=== PATIENT | female | born 2000 | race Hispanic/Latino ===

== ENCOUNTER 2022-07-30 10:55 | Emergency (ER) | payer OTHER ==
[~2022-07-30] VITALS: Ht 152.4 cm; Wt 59.0 kg
[2022-07-30] MEDS ORDERED: TAM75CAP PO (12:03)
[2022-07-30] MEDS ORDERED: ZYRTEC10 MG PO (12:04)
[2022-07-30] MEDS ORDERED: ZPAK PO (13:18)
[2022-07-30 13:31] VITALS: BP 118/59
== END 2022-07-30 13:33 | disposition home or self-care (01) | DRG 195 ==
LOC: ED 10:55
DX: J10.1 Influenza due to other identified influenza virus with other respiratory manifestations (principal); Z20.822 Contact with and (suspected) exposure to COVID-19

== ENCOUNTER 2023-03-30 00:02 | Emergency (ER) | payer SELFPAY ==
[~2023-03-30] VITALS: Ht 152.4 cm; Wt 60.0 kg
[~2023-03-30 00:02] MED LIST: TAM75CAP PO; ZPAK PO; ZYRTEC10 MG PO
[2023-03-30 00:09] VITALS: BP 108/68
[2023-03-30 00:15] VITALS: BP 115/60
[2023-03-30] MEDS ORDERED: ACETAMINOPHEN 500 MG TAB PO ONE (00:20)
[2023-03-30] MEDS ORDERED: PROCHLORPERAZINE EDISYLATE 10 MG/2 ML SDV IV ONE (00:20)
[2023-03-30] MEDS ORDERED: SODIUM CHLORIDE 0.9% 1,000 ML IV ONE (00:20)
[2023-03-30 00:30] VITALS: BP 107/60
[2023-03-30 00:35] LABS: BASO% 0.1 % (0-3); HEMATOCRIT 34.6 % (37.0-47.0); HEMOGLOBIN 11.7 g/dl (12.0-16.0); IMMATURE GRANULOCYTES 0.2 % (0.0-5.0); LYMPH% 6.4 % (15-41); MEAN CELL VOLUME 92.3 fL CALC (80.0-100.0); MEAN CORPUSCULAR HGB 31.2 pG CALC (26.0-32.0); MEAN CORPUSCULAR HGB CONC 33.8 g/dL CAL (32.0-36.0); NEUT# 12.71 thou/uL (2.00-7.15); NEUT% 85.3 % (42-76); RED BLOOD COUNT 3.75 mill/uL (4.20-5.60); RED CELL DISTRI WIDTH 12.1 % (11.5-15.5)
[2023-03-30 02:36] LABS: URINE BILIRUBIN - DIPSTICK Negative (NEGATIVE); URINE BLOOD DIPSTICK Trace-intact (NEGATIVE); URINE COLOR Yellow; URINE GLUCOSE - DIPSTICK Negative (NEGATIVE); URINE KETONE >=160 mg/dL (NEGATIVE); URINE LEUK ESTERASE Small (NEGATIVE); URINE NITRITE - DIPSTICK Positive (Negative); URINE PH 5.5 (4.5-8.0); URINE PROTEIN - DIPSTICK 30 mg/dL (NEG-TRACE); URINE SQUAMOUS EPITHELIAL CELL MANY EPI/hpf (0-FEW); URINE UROBILINOGEN - DIPSTICK 0.2 E.U./dL (0.2); URINE WBC 50-100 WBC/hpf (0-5)
[2023-03-30 02:37] LABS: URINE BACTERIA MANY hpf
[2023-03-30] MEDS ORDERED: CEPHALEXIN MONOHYDRATE 500 MG/CAP PO ONE (02:50)
[2023-03-30] MEDS ORDERED: KEFLEX500 MG PO (02:52)
[2023-03-30 03:00] VITALS: BP 109/72
== END 2023-03-30 03:15 | disposition home or self-care (01) | DRG 832 ==
LOC: ED 00:02
PROVIDERS: Family Medicine
DX: O23.40 Unspecified infection of urinary tract in pregnancy, unspecified trimester (principal); N39.0 Urinary tract infection, site not specified; B96.89 Other specified bacterial agents as the cause of diseases classified elsewhere; Z3A.00 Weeks of gestation of pregnancy not specified; Z20.822 Contact with and (suspected) exposure to COVID-19